=== PATIENT | male | born 1975 | race Caucasian/White ===

== ENCOUNTER 2019-12-15 09:41 | Outpatient (CLI) | payer BC, SELFPAY ==
--- NOTE | 2019-12-15 11:00 | NEURO_ITS ---
Patient Number: [id number] Impression: # Complains of numbness of 4th and 5th fingers. 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 # Subtle evolving bilateral Carpal Tunnel Syndrome. # Normal needle/EMG exam. Nerve Conduction Studies Anti Sensory Summary Table Stim Site NR Peak (ms) P-T Amp (?V) Site1 Site2 Delta-P (ms) Dist (cm) Issa (m/s) Left Median Anti Sensory (2-3nd Digit) Wrist 2.6 89.4 Wrist 2-3nd Digit 2.6 14.0 54 Wrist 2.8 87.6 Wrist 2-3nd Digit 2.6 14.0 54 Right Median Anti Sensory (2-3nd Digit) Wrist 2.8 79.5 Wrist 2-3nd Digit 2.8 14.0 50 Wrist 2.7 73.6 Wrist 2-3nd Digit 2.8 14.0 50 Left Radial Anti Sensory (Base 1st Digit) Wrist 2.0 34.1 Wrist Base 1st Digit 2.0 0.0 Right Radial Anti Sensory (Base 1st Digit) Wrist 2.3 22.4 Wrist Base 1st Digit 2.3 0.0 Left Ulnar Anti Sensory (5th Digit) Wrist 2.6 46.0 Wrist 5th Digit 2.6 14.0 54 Right Ulnar Anti Sensory (5th Digit) Wrist 2.3 65.3 Wrist 5th Digit 2.3 14.0 61 Motor Summary Table Stim Site NR Onset (ms) O-P Amp (mV) Site1 Site2 Delta-0 (ms) Dist (cm) Issa (m/s) Left Median Motor (Abd Poll Brev) Wrist 3.0 4.8 Elbow Wrist 5.0 30.0 60 Elbow 8.0 6.6 Right Median Motor (Abd Poll Brev) Wrist 3.4 4.8 Elbow Wrist 5.0 28.0 56 Elbow 8.4 4.1 Left Ulnar Motor (Abd Dig Minimi) Wrist 2.0 6.8 A Elbow Wrist 5.5 29.0 53 A Elbow 7.5 5.5 B Elbow Wrist 3.8 23.0 61 B Elbow 5.8 5.1 Right Ulnar Motor (Abd Dig Minimi) Wrist 2.1 6.2 A Elbow Wrist 5.2 29.0 56 A Elbow 7.3 5.1 F Wave Studies NR F-Lat (ms) L-R F-Lat (ms) Left Median (Mrkrs) (Abd Poll Brev) 28.44 0.39 Right Median (Mrkrs) (Abd Poll Brev) 28.05 0.39 Left Ulnar (Mrkrs) (Abd Dig Min) 28.85 0.23 Right Ulnar (Mrkrs) (Abd Dig Min) 29.09 0.23 EMG Side Muscle Nerve Root Ins Act Fibs Amp Dur Recrt Comment Right 1stDorInt Ulnar C8-T1 Nml Nml Nml Nml Nml Right Ext Indicis Radial (Post Int) C7-8 Nml Nml Nml Nml Nml Right Ext Digitorum Radial (Post Int) C7-8 Nml Nml Nml Nml Nml Right BrachioRad Radial C5-6 Nml Nml Nml Nml Nml Right PronatorTeres Median C6-7 Nml Nml Nml Nml Nml Right Abd Poll Brev Median C8-T1 Nml Nml Nml Nml Nml Left 1stDorInt Ulnar C8-T1 Nml Nml Nml Nml Nml Left Ext Indicis Radial (Post Int) C7-8 Nml Nml Nml Nml Nml Left Ext Digitorum Radial (Post Int) C7-8 Nml Nml Nml Nml Nml Left BrachioRad Radial C5-6 Nml Nml Nml Nml Nml Left PronatorTeres Median C6-7 Nml Nml Nml Nml Nml Left Abd Poll Brev Median C8-T1 Nml Nml Nml Nml Nml MTDD
== END 2019-12-15 09:42 | disposition home or self-care (01) ==
PROVIDERS: Visit Provider Plastic Surgery
DX: R53.1 Weakness (principal); R20.2 Paresthesia of skin; G56.03 Carpal tunnel syndrome, bilateral upper limbs; G56.22 Lesion of ulnar nerve, left upper limb
CPT/HCPCS: 95886; 95911

== ENCOUNTER 2020-05-23 01:17 | Outpatient (CLI) | payer BC, SELFPAY ==
[2020-05-23 18:12] LABS: SARS-CoV-2 RNA PCR Negative
== END 2020-05-23 01:18 | disposition home or self-care (01) ==
LOC: ANHCOVIDDT 01:17
PROVIDERS: Visit Provider Plastic Surgery
DX: Z20.828 Contact with and (suspected) exposure to other viral communicable diseases (principal)
CPT/HCPCS: 87635; C9803; U0003

== ENCOUNTER 2020-05-25 03:06 | Day surgery (SDC) | payer BC, SELFPAY ==
[2020-05-18 18:31] VITALS: BMI 25.9
[2020-05-25] VITALS (7 sets, daily range): BP systolic 103–127; BP diastolic 53–83; PULSE 72–80; RESP 18–20; TEMP 36.7; O2SAT 99–100
--- NOTE | 2020-05-25 08:52 | WPDHPUPDATE1 ---
History and Physical Update Update Date/Time: 05/25/20 08:52 History and Physical has been reviewed, including an updated exam of the patient. There are NO changes in the patient's condition. Risks, benefits, and alternatives have been discussed and questions answered. Patient agrees to proceed with procedure.
--- NOTE | 2020-05-25 09:44 | PM.OP ---
Procedure Note - Brief Procedure Note - Brief Date of procedure: 05/25/20 Pre-op diagnosis: Bilateral Carpal Tunnel Syndrome Post-op diagnosis: same Procedure performed: B OCTR Anesthesia: local Surgeon: Ant Lobato MD Estimated blood loss (mL): 4 Tourniquet time (min): 0 Drains: No Packing: No Pathology: none sent Complications: No immediate complications Condition: stable Disposition: same day
--- NOTE | 2020-05-25 09:45 | P.OP_ITS ---
Procedure Note - Detailed Date of procedure: 05/25/20 Pre-op diagnosis: Bilateral Carpal Tunnel Syndrome Post-op diagnosis: same Procedure performed: Bilateral open carpal tunnel release Description of procedure: The patient was under local and the sites were marked in the operating room. He was placed supine on the operating table. Time-out was held and confirmed. No tourniquet was utilized. The 2 sites were marked and locally infiltrated with 1% lidocaine with epinephrine. The right side was done 1st with incision as marked in the palm and blunt dissection through the subcutaneous tissue to the palmar fascia. This and the carpal ligament were incised with a 15. Bard-Isma blade. Under 3 point retraction the ligament was divided distally and proximally to completely release it. There was no unusual anatomy noted the skin was closed with intradermal ruptured 4-0 nylon suture. Two sites were cauterized in the subcutaneous tissue prior to closure. On the left side the incision had been marked. No tourniquet was utilized on this side the incision was made as marked and dissection was carried bluntly through the subcutaneous tissue to the palmar fascia. Under 3 point retraction the ligament was visualized and incised with a 15. Blade. Under 3 point retraction the ligament was divided distally and proximally to completely release it. The wound was closed with interrupted 4-0 nylon suture. The usual bandage was applied. Is discharged with instructions in wound care and follow- up es a prescription for hydrocodone 5/325 12. Anesthesia: local Surgeon: Ant Lobato MD Estimated blood loss (mL): 4 Tourniquet time (min): 0 Drains: No Packing: No Pathology: none sent Complications: No immediate complications Condition: stable Disposition: same day
== END 2020-05-25 10:11 | disposition home or self-care (01) ==
PROVIDERS: Visit Provider Plastic Surgery
PROC: (CPT 64721; principal; 2020-05-25 09:30)
DX: G56.03 Carpal tunnel syndrome, bilateral upper limbs (principal)
CPT/HCPCS: 64721; A9270

== ENCOUNTER 2020-06-11 11:13 | Outpatient (CLI) | payer BC, SELFPAY ==
--- NOTE | 2020-06-11 11:27 | ECG_ITS ---
Measurements Intervals [place] Rate: 67 P: 47 ND: 154 QRS: 62 QRSD: 86 T: 48 QT: 386 QTc: 408 Interpretive Statements SINUS RHYTHM DELAYED PRECORDIAL R/S TRANSITION BASELINE ARTIFACT- II, III, AVF, V6 BORDERLINE ECG Electronically Signed On 06-11-2020 11:50:31 CDT by Eyal Hunter D.O.
== END 2020-06-11 11:14 | disposition home or self-care (01) ==
PROVIDERS: PCP Nurse Practitioner; Visit Provider Anesthesiology
DX: Z01.810 Encounter for preprocedural cardiovascular examination (principal); I10 Essential (primary) hypertension
CPT/HCPCS: 93005

== ENCOUNTER 2020-06-13 00:56 | Outpatient (CLI) | payer BC, SELFPAY ==
[2020-06-13 16:30] LABS: SARS-CoV-2 RNA PCR Negative
== END 2020-06-13 00:57 | disposition home or self-care (01) ==
LOC: ANHCOVIDDT 00:56
PROVIDERS: PCP Nurse Practitioner; Visit Provider Plastic Surgery
DX: Z01.812 Encounter for preprocedural laboratory examination (principal); Z20.828 Contact with and (suspected) exposure to other viral communicable diseases
CPT/HCPCS: 87635; C9803; U0003

== ENCOUNTER 2020-06-15 00:57 | Day surgery (SDC) | payer BC, SELFPAY ==
[2020-06-09 09:19] VITALS: BMI 25.9
[2020-06-15] VITALS (9 sets, daily range): BP systolic 95–109; BP diastolic 58–75; PULSE 56–72; RESP 8–20; TEMP 35.9–36.1; O2SAT 95–100
[2020-06-15] MEDS: LACTATED RINGERS 1,000 ML 30 ML IV CONT (06:20)
--- NOTE | 2020-06-15 07:05 | WPDHPUPDATE1 ---
History and Physical Update Update Date/Time: 06/15/20 07:05 History and Physical has been reviewed, including an updated exam of the patient. There are NO changes in the patient's condition. Risks, benefits, and alternatives have been discussed and questions answered. Patient agrees to proceed with procedure.
--- NOTE | 2020-06-15 07:16 | WPDANESEPPF ---
Anes - Initial Pre Proc Eval Procedure: Operation Date: 06/15/20 07:30 Proposed Procedures p Right Ulnar Neuroplasty At The Elbow - Ant Lobato MD Date/Time: 06/15/20 07:16 Surgeon: Ant Lobato MD Pre Op Diagnosis: Right Cubital Tunnel Syndrome Patient Data Age: 44 Gender: M Height: 5 ft 8 in Weight: 73.3 kg Last Vital Signs Temp 96.7 F L 06/15/20 06:14 Pulse 64 06/15/20 06:14 Resp 18 06/15/20 06:14 BP 109/73 06/15/20 06:14 Pulse Ox 100 06/15/20 06:14 Allergies Allergy/AdvReac Type Severity Reaction Status Date / Time No Known Allergies Allergy Mild Verified 06/15/20 06:32 Home Medications Medication Instructions Recorded Confirmed Type atorvastatin [Lipitor] 20 mg PO DAILY 05/18/20 06/15/20 History lisinopril 5 mg PO DAILY 05/18/20 06/15/20 History Patient hx anesthesia problems: none Family hx anesthesia problems: none [facility] Past Medical History Medical History (Updated 06/15/20 @ 07:16 by Syed Lawton MD) Hyperlipidemia Hypertension Social History Social History Smoking packs per day: 1 Smoking cigarettes per day: 20.0 Years smoked: 20 Smoking pack-years: 20.00 Smoking status: Current every day smoker Tobacco type: cigarettes Alcohol intake: current Drinks per week: 6 Substance use: current Spiritual care concerns: No Anes - Eval Final PreProcedure Day of Procedure 06/15/20 07:16 Patient weight: normal Heart: regular rate and rhythm Lungs: clear to auscultation Airway: Mallampati scale class II Neurological: alert and oriented Last oral intake: >/= 8 hours ASA classification: II Emergent: no Anesthetic plan: proceed Anesthesia type and monitoring: general GIVS (may use an LMA) and standard monitoring Informed Consent: The patient's anesthetic plan and its attendant risks and benefits were discussed with the patient/family/POA. Questions were solicited and answers provided to the satisfaction of the patient/family/POA.
[2020-06-15] MEDS: LIDO 1%/EPINEPHRINE 1:100,000 20 ML VIAL 7 ML INFILTRATE (07:56)
--- NOTE | 2020-06-15 08:33 | P.OPB_ITS ---
Procedure Note - Brief Procedure Note - Brief Date of procedure: 06/15/20 Pre-op diagnosis: Right Cubital Tunnel Syndrome Post-op diagnosis: same Procedure performed: Right ulnar neuroplasty at the elbow. Anesthesia: GLMA Surgeon: Ant Lobato MD Solar Panel Technician: Diaz Au Estimated blood loss (mL): 1 Tourniquet time (min): 18 Drains: No Packing: No Pathology: none sent Complications: No immediate complications Condition: stable Disposition: PACU
--- NOTE | 2020-06-15 08:37 | PM.PROC ---
Procedure Note - Detailed Date of procedure: 06/15/20 Pre-op diagnosis: Right Cubital Tunnel Syndrome Post-op diagnosis: same Procedure performed: Right ulnar neuroplasty at the elbow Description of procedure: The right elbow was marked as the patient waited the holding. He was taken to the operating room where he was placed supine on the operating table. A time-out was held and confirmed. He was administered general IV sedation with an LMA. The right upper extremity was prepped and draped in usual fashion. Appropriate surgical marking was made at the elbow. This area was infiltrated with 1% lidocaine with epinephrine. The elbow was flexed and supported on folded towels. The tourniquet was inflated to 250 mmHg. The incision was made as marked. Dissection was carried through the subcutaneous tissue. The ulnar nerve was identified proximal to the medial epicondyle quite superficially it was exposed throughout its the visible length in this area. The compression lay under Yost ligament it appeared as the nerve appeared concave in that area. This nerve did not completely sublux. It was not completely removed from all fascial attachments. I elected not to transpose it. Bleeding points were electrocoagulated and the skin flap was placed over the nerve and repairs were done with intradermal 3-0 Monocryl suture at the cross mcduffie chen. The skin was closed with running intradermal 3-0 Monocryl. The usual bandage was applied the tourniquet was released and the patient was transported from the recovery room in stable condition. Anesthesia: GLMA Surgeon: Ant Lobato MD Solar Energy Installation Manager: Diaz Au Estimated blood loss (mL): 2 Tourniquet time (min): 18 Drains: No Packing: No Pathology: none sent Complications: No immediate complications Condition: stable Disposition: PACU
== END 2020-06-15 10:19 | disposition home or self-care (01) ==
PROVIDERS: PCP Nurse Practitioner; Visit Provider Plastic Surgery
PROC: (CPT 64718; principal; 2020-06-15 07:30)
DX: G56.21 Lesion of ulnar nerve, right upper limb (principal); I10 Essential (primary) hypertension; E78.5 Hyperlipidemia, unspecified; F17.210 Nicotine dependence, cigarettes, uncomplicated
CPT/HCPCS: 64718; A9270; J1100; J2250; J2405; J2704; J3010; J7120

== ENCOUNTER 2023-04-16 10:00 | Emergency (ER) | payer BC, SELFPAY ==
--- NOTE | 2023-04-16 10:20 | ED.NECK ---
HPI - Neck Pain/Injury General Chief Complaint: Neck Pain/Injury Stated Complaint: neck and shoulder pain Source: patient and RN notes reviewed History of Present Illness HPI Narrative: 47-year-old male presents to urgent care with complaints of left lateral/ posterior neck pain that radiates to his left posterior shoulder. Patient states he has been having numbness and tingling down his left arm and down the left side of his back at times. Patient states this pain in his neck started 2 nights ago but last night it got much worse. Patient can rotate his head in all directions, however, he starts to feel pain and pull mostly when he is looking downward. Patient denies any headache, spinal tenderness, injury, fevers, chills, chest pain, shortness of breath, or vomiting. Patient has taken 800 mg ibuprofen, and placed Biofreeze on the area without relief. Related Data Home Medications Medication Instructions Recorded Confirmed atorvastatin 20 mg tablet (Lipitor) 20 mg PO DAILY 05/18/20 04/16/23 metoprolol tartrate 25 mg tablet 25 mg PO DAILY 04/16/23 04/16/23 Allergies Allergy/AdvReac Type Severity Reaction Status Date / Time No Known Allergies Allergy Mild Verified 04/16/23 10:35 Review of Systems Review of Systems: Pertinent positives and pertinent negatives per HPI. [facility] Past Medical History Medical History (Updated 04/16/23 @ 10:40 by Adwoa Montes, BRIANNE) Hyperlipidemia Hypertension Social History Social History Smoking packs per day: 1 Smoking cigarettes per day: 20.0 Years smoked: 20 Smoking pack-years: 20.00 Smoking status: Current every day smoker Tobacco type: cigarettes Alcohol intake: current Drinks per week: 6 Substance use: current Living arrangements: with family Spiritual care concerns: No Comments At the time of my signature, I reviewed and agree with the nursing past medical, surgical, social, and family history. There is no relevant family history pertinent to the patient complaint. Exam Narrative: GENERAL: This is a well-nourished, well-developed patient, in no apparent distress. HEAD: normocephalic, atraumatic. EYES: Sclera clear/white. Vision is grossly intact. EARS: External ears normal, auditory canals clear and without drainage, TMs normal without perforation. Hearing grossly intact. NOSE: External nose normal with no obvious nasal discharge, nares without redness, no rhinorrhea. THROAT: Mucous membranes moist, posterior pharynx clear. NECK: Neck supple, tenderness to left lateral/posterior muscle that radiates to left trapezius muscle. CARDIOVASCULAR: Regular rate and rhythm without murmurs, gallops, or rubs. RESPIRATORY: Clear to auscultation. Breath sounds equal bilaterally. No wheezes, rales, or rhonchi. SKIN: warm, intact with no suspicious lesions or rash, good texture and turgor. NEURO: awake, alert, and oriented to person, place and time. There were no obvious focal neurologic abnormalities. EXTREMITIES: No clubbing, cyanosis, or edema. No joint tenderness, effusion, or edema noted. BACK: Nontender without deformity or crepitus. No flank tenderness. Course Course Level of Care: Express Care Visit Vital Signs Vital signs: Vital Signs Temperature 97.8 F 04/16/23 10:29 Pulse Rate 70 04/16/23 10:29 Respiratory Rate 16 04/16/23 10:29 Blood Pressure 124/91 H 04/16/23 10:29 Pulse Oximetry 100 04/16/23 10:29 Oxygen Delivery Room Air 04/16/23 10:29 Temperature 97.8 F 04/16/23 10:29 Pulse Rate 70 04/16/23 10:29 Respiratory Rate 16 04/16/23 10:29 Blood Pressure 124/91 H 04/16/23 10:29 Pulse Oximetry 100 04/16/23 10:29 Oxygen Delivery Room Air 04/16/23 10:29 Reviewed MDM - Neck Pain/Injury MDM Narrative Medical decision making narrative: May take 600 mg of ibuprofen every 6 hours WITH FOOD, as needed for pain. May take 1,000 mg of Tylenol every hours as well for pain. May take the muscle re
[2023-04-16 10:29] VITALS: BP 124/91; PULSE 70; RESP 16; TEMP 36.6; O2SAT 100
[2023-04-16] MEDS: KETOROLAC 30 MG/ML VIAL (*BKC) IM (10:45)
== END 2023-04-16 10:50 | disposition home or self-care (01) ==
PROVIDERS: Emergency Provider Nurse Practitioner Family; PCP Nurse Practitioner
DX: M54.12 Radiculopathy, cervical region (principal); S16.1XXA Strain of muscle, fascia and tendon at neck level, initial encounter; X58.XXXA Exposure to other specified factors, initial encounter; E78.5 Hyperlipidemia, unspecified; I10 Essential (primary) hypertension; F17.210 Nicotine dependence, cigarettes, uncomplicated
CPT/HCPCS: 96372; 99213; G0463; J1885